=== PATIENT | female | born 1960 | race Caucasian/White ===

== ENCOUNTER 2018-11-19 09:40 | Day surgery (SDC) | payer OTHER ==
[~2018-11-19] VITALS: Ht 152.4 cm; Wt 62.4 kg
[~2018-11-19 09:40] MED LIST: ATOR20TA38 PO; GLIM4TAB PO; HYDR25TA6 PO; LEVO100T8 PO; LOSA50TA14 PO; MTF1000T PO; NPH SQ; OLME40TA13 PO; SENN-120 PO
[2018-11-19 10:40] VITALS: Ht 152.4 cm; Wt 62.4 kg
[2018-11-19 11:06] VITALS: BP 158/77; PULSE 66; RESP 18
--- NOTE | 2018-11-19 11:17 | PREAC ---
Date/Time of Note Date/Time of Note DATE: 11/19/18 TIME: 11:15 Anesthesia Eval and Record Evaluation Time Pre-Procedure Interview DATE: 11/19/18 TIME: 11:15 Age 58 Sex female NPO: 8 hrs Preoperative diagnosis Screening Planned procedure Colonoscopy Past Medical History Past Medical History: Includes Cardio: HTN, Dyslipidemia Endo: Diabetes, Hypothyroid Surgery & Anesthesia Issues No known issue Meds Anticoagulation: No Beta Christie within 24 hr: No Reason Beta Christie not given: Pt. not on B-Christie Reported Medications Sennosides* (Senna Lax*) 8.6 Mg Tablet, 1 TAB PO DAILY, TAB 11/19/18 Levothyroxine Sodium* (Levothyroxine Sodium*) 100 Mcg Tablet, 100 MCG PO BEFORE BREAKFAST, #30 TAB 11/19/18 Hydrochlorothiazide* (Hydrochlorothiazide*) 25 Mg Tab, 25 MG PO DAILY, #30 TAB 11/19/18 Atorvastatin Calcium* (Atorvastatin Calcium*) 20 Mg Tablet, 20 MG PO QHS, #30 TAB 11/19/18 Losartan Potassium* (Losartan Potassium*) 50 Mg Tablet, 50 MG PO DAILY, TAB 11/19/18 Insulin Human Nph (Novolin-N) 100 Units/Ml Susp, 0 SQ 11/19/18 Metformin* (Glucophage*) 1,000 Mg Tablet, 1000 MG PO BID, TAB 12/16/13 Glimepiride* (Glimepiride*) 4 Mg Tablet, 4 MG PO BID, TAB 12/13/13 Discontinued Reported Medications Olmesartan Medoxomil (Benicar) 40 Mg Tablet, 40 MG PO DAILY, TAB 12/13/13 Meds reviewed: Yes Allergies Coded Allergies: No Known Allergy (Unverified , 12/13/13) Allergies Reviewed: Yes Labs/Studies Labs Reviewed: Reviewed by anesthesiologist test: N/A Studies: ECG (n/a), CXR (n/a) Pre-procedure Exam Last vitals Vital Signs Date Temp Pulse Resp B/P (MAP) Pulse Ox O2 O2 Flow FiO2 Time Delivery Rate 11/19/18 97.5 66 18 158/77 98 Room Air 11:06 (104) Airway: Adequate mouth opening, Adequate thyromental dist Mallampati: Mallampati II Teeth: Normal Lung: Normal Heart: Normal ASA Physical Status ASA physical status: 3 Emergency: None Planned Anesthetic General/MAC: MAC Planned Pain Management Parenteral pain med Pre-operative Attestations Prior to commencing anesthesia and surgery, the patient was re-evaluated, there was verification of: *The patient's identity *The results of appropriate recent lab work and preoperative vital signs *The above evaluation not changing prior to induction *Anesthetic plan, risk benefits, alternative and complications discussed with patient/family; questions answered; patient/family understands, accepts and wishes to proceed. KARTIK HAIRSTON MD Nov 19, 2018 11:16
[2018-11-19] MEDS ORDERED: PROPOFOL 20 ML ONE (11:40)
--- NOTE | 2018-11-19 11:41 | PAC ---
Date/Time of Note Date/Time of Note DATE: 11/19/18 TIME: 11:41 Post-Anesthesia Notes Post-Anesthesia Note Last documented vital signs Vital Signs Date Temp Pulse Resp B/P (MAP) Pulse Ox O2 O2 Flow FiO2 Time Delivery Rate 11/19/18 97.5 66 18 158/77 98 Room Air 11:36 (104) Activity: WNL Respiratory function: WNL Cardiovascular function: WNL Mental status: Baseline Pain reasonably controlled: Yes Hydration appropriate: Yes Nausea/Vomiting absent: Yes KARTIK HAIRSTON MD Nov 19, 2018 11:41
[2018-11-19 12:24] VITALS: BP_SYST 136; RESP 20
== END 2018-11-19 16:45 | disposition home or self-care (01) ==
LOC: GIL 09:40
PROVIDERS: ATTEND Internal Medicine Gastroenterology
DX: Z12.11 Encounter for screening for malignant neoplasm of colon (principal); D12.4 Benign neoplasm of descending colon; E11.9 Type 2 diabetes mellitus without complications; I10 Essential (primary) hypertension; E03.9 Hypothyroidism, unspecified; Z79.4 Long term (current) use of insulin; Z79.84 Long term (current) use of oral hypoglycemic drugs
CPT/HCPCS: 45380; 82962; 88305; Z7610